=== PATIENT | female | born 1955 | race Caucasian/White ===

== ENCOUNTER → 2016-08-15 | Outpatient (CLI) | payer MEDICAID | LOC: MHCPAIN 10:00 | DX: G89.29 Other chronic pain (principal); M47.27 Other spondylosis with radiculopathy, lumbosacral region; M53.3 Sacrococcygeal disorders, not elsewhere classified; Z87.891 Personal history of nicotine dependence | CPT/HCPCS: G0463 ==

== ENCOUNTER → 2016-11-28 | Outpatient (CLI) | payer MEDICAID | LOC: MHCPAIN 09:56 | DX: G89.29 Other chronic pain (principal); M47.817 Spondylosis without myelopathy or radiculopathy, lumbosacral region; M54.16 Radiculopathy, lumbar region; F17.210 Nicotine dependence, cigarettes, uncomplicated | CPT/HCPCS: G0463 ==

== ENCOUNTER → 2016-12-11 | Outpatient (CLI) | payer MEDICAID | LOC: MHCPAIN 12:37 | DX: M47.817 Spondylosis without myelopathy or radiculopathy, lumbosacral region (principal) | CPT/HCPCS: J1100; J2250; J3010; Q9967 ==

== ENCOUNTER → 2017-01-09 | Outpatient (CLI) | payer MEDICAID | LOC: MHCPAIN 08:53 | DX: G89.29 Other chronic pain (principal); M47.817 Spondylosis without myelopathy or radiculopathy, lumbosacral region; M54.16 Radiculopathy, lumbar region; M53.3 Sacrococcygeal disorders, not elsewhere classified | CPT/HCPCS: G0463 ==

== ENCOUNTER 2017-01-16 08:59 | Outpatient (RCR) | payer MEDICAID | END 2017-02-26 08:55 | LOC: WSPT 08:59 | DX: M47.816 Spondylosis without myelopathy or radiculopathy, lumbar region (principal); M79.2 Neuralgia and neuritis, unspecified ==

== ENCOUNTER 2021-11-22 09:39 | Day surgery (SDC) | payer MEDICARE, MEDICAID ==
[~2021-11-22] VITALS: Ht 154.9 cm; Wt 73.9 kg
[2021-11-22] MEDS ORDERED: TENORMIN100 MG PO (10:01)
[2021-11-22] MEDS ORDERED: NORVASC 10MG10 MG PO (10:01)
[2021-11-22 10:15] VITALS: BP 162/73; PULSE 57; TEMP 97.6
[2021-11-22 11:25] VITALS: BP 122/59; PULSE 56; TEMP 97.4
--- NOTE | 2021-11-22 11:25 | NUR ---
PATIENT ARRIVES TO ROOM 5 VIA CART. ASSIST X 2 TO CHAIR. VITAL SIGNS WNL. PATIENT REQUESTS BLUEBERRY MUFFIN AND COFFEE. PATIENT WILL NEED TO CALL RIDE WHEN DISCHARGED. WILL CONTINUE TO MONITOR.
[2021-11-22 11:55] VITALS: BP 132/53; PULSE 56
--- NOTE | 2021-11-22 11:55 | NUR ---
PATIENT IS AWAKE AND READY FOR DISCHARGE. DOCTOR IS AT BEDSIDE. VITAL SIGNS WNL. IV DISCONTINUED. WILL DISCHARGE VIA WHEELCHAIR AFTER SHE IS DRESSED. HER RIDE IS WAITING DOWNSTAIRS.
== END 2021-11-22 12:08 | disposition home or self-care (01) ==
LOC: SDCO 09:39
DX: Z12.11 Encounter for screening for malignant neoplasm of colon (principal); D12.3 Benign neoplasm of transverse colon; K63.5 Polyp of colon; K57.30 Diverticulosis of large intestine without perforation or abscess without bleeding; I10 Essential (primary) hypertension; F17.210 Nicotine dependence, cigarettes, uncomplicated
CPT/HCPCS: J2704; J7120